=== PATIENT | female | born 1990 | race Caucasian/White ===

== ENCOUNTER → 2022-03-12 08:56 | Outpatient (CLI) | payer OTHER, SELFPAY ==
[2022-03-12 10:02] LABS: HCG Quantitative /Beta subunit 2309.9 mIU/mL
== END ==
PROVIDERS: Referring Provider Obstetrics & Gynecology; Visit Provider Obstetrics & Gynecology
DX: O20.9 Hemorrhage in early pregnancy, unspecified (principal)
CPT/HCPCS: 36415; 84702

== ENCOUNTER → 2022-03-14 07:25 | Outpatient (CLI) | payer OTHER, SELFPAY ==
[2022-03-14 09:06] LABS: HCG Quantitative /Beta subunit 2958.7 mIU/mL
== END ==
PROVIDERS: Referring Provider Obstetrics & Gynecology; Visit Provider Obstetrics & Gynecology
DX: O20.9 Hemorrhage in early pregnancy, unspecified (principal)
CPT/HCPCS: 36415; 84702

== ENCOUNTER → 2022-03-17 13:58 | Outpatient (CLI) | payer OTHER, SELFPAY ==
[2022-03-17 14:44] LABS: HCG Quantitative /Beta subunit 6140.6 mIU/mL
--- NOTE | 2022-03-17 15:31 | DI.US.S_ITS ---
PROCEDURE: US OB <= 14 WEEKS FETUS INDICATIONS: VIABILITY OUTSIDE/PRIOR DATING DATA: Last menstrual period (LMP): Unknown. LMP-based estimated date of delivery (MIRTHA): Unknown. First dating scan (date and location): 03/17/2022. Estimated date of delivery (MIRTHA) from first dating scan: 11/10/2022. TECHNIQUE: Real-time scanning was performed of the fetus and maternal pelvic organs, with image documentation. Endovaginal scanning was also performed to better visualize the fetus and maternal ovaries. COMPARISON: None. FINDINGS: Embryo: No definite intrauterine gestational sac. Trace complex fluid within the endometrial canal. 2 hypoechoic foci within the uterus measuring 1.6 cm and 0.8 cm. These likely represent small uterine fibroids. Maternal organs: Right ovary is abnormal. Right adnexal cyst/gestational sac with suspected pole. [place]-rump length measuring at 0.4 cm corresponding to 6 weeks 0 days gestational age. Left ovary is not seen. Heart rate: 117 bpm. Yolk sac is seen. IMPRESSION: 1. Right ectopic with cardiac motion. 2. No intrauterine gestational sac is identified. Suspect small uterine fibroids. Comment: Findings were discussed with Rina Crowley at the time of dictation. We strive to produce accurate, complete, and clear reports of imaging services. To assist us in improving patient care, this report was composed using standard report templates and voice recognition software. Therefore, it may contain abnormal punctuation, insertions and/or omissions. Occasional wrong-word or sound-alike substitutions may occur. Though we review the report and make efforts to correct it, we do recommend that the report be read carefully in proper context to recognize any text inaccuracies. Dictated by: Earnest Mar M.D. on 03/17/2022 at 16:56 Approved by: Earnest Mar M.D. on 03/17/2022 at 17:07
== END ==
PROVIDERS: Referring Provider Obstetrics & Gynecology; Visit Provider Obstetrics & Gynecology
DX: O00.201 Right ovarian pregnancy without intrauterine pregnancy (principal)
CPT/HCPCS: 36415; 76801; 76817; 84702; J9250

== ENCOUNTER → 2022-03-20 06:34 | Outpatient (CLI) | payer OTHER, SELFPAY ==
[2022-03-20 09:43] LABS: HCG Quantitative /Beta subunit 8284.7 mIU/mL
== END ==
PROVIDERS: PCP Obstetrics & Gynecology; Referring Provider Obstetrics & Gynecology; Visit Provider Obstetrics & Gynecology
DX: O00.90 Unspecified ectopic pregnancy without intrauterine pregnancy (principal); Z3A.00 Weeks of gestation of pregnancy not specified
CPT/HCPCS: 36415; 84702

== ENCOUNTER → 2022-03-24 04:37 | Outpatient (CLI) | payer OTHER, SELFPAY ==
[2022-03-24 05:53] LABS: HCG Quantitative /Beta subunit 8667.1 mIU/mL
== END ==
PROVIDERS: PCP Obstetrics & Gynecology; Referring Provider Obstetrics & Gynecology; Visit Provider Obstetrics & Gynecology
DX: O00.90 Unspecified ectopic pregnancy without intrauterine pregnancy (principal); Z3A.00 Weeks of gestation of pregnancy not specified
CPT/HCPCS: 84702

== ENCOUNTER 2022-03-25 13:49 | Day surgery (SDC) | payer OTHER, SELFPAY ==
[2022-03-25] VITALS (11 sets, daily range): BP systolic 106–126; BP diastolic 54–78; PULSE 62–84; RESP 14–18; TEMP 36.3–36.8; O2SAT 99–100; BMI 28.1
--- NOTE | 2022-03-25 | PATH_ITS ---
[facility] Accession Number: [id number] No. of containers..01 Tissue . 01 Material submitted: . fallopian tube - RIGHT FALLOPIAN TUBE WITH ECTOPIC . 01 Diagnosis: Right Fallopian Tube with Ectopic , Salpingectomy: Chorionic villi and hemorrhage within fallopian tube lumen, consistent with ectopic gestation. MRV 03/27/2022 1326 Local . 01 Electronically signed: . Yashira Flowers MD, Pathologist NPI- [id number] . 01 Gross description: . Received in formalin labeled with the patient's name and right fallopian tube with ectopic and consists of a single fimbriated fallopian tube measuring 7.3 cm in length that is grossly dilated with a diameter ranging from 0.4 to 2.0 cm. The serosa is violaceous and slightly green and is apparently intact. Sectioning reveals the area of dilation to contain red-brown spongy material, and a possible gestational sac is identified located centrally measuring approximately 1.4 cm in greatest dimension. No tissue is identified. The uninvolved lumen is pinpoint and unremarkable. Signals Collector/Analyst sections are submitted as follows: . A1: Bisected fimbriae and unremarkable lumen. A2-A3: Signals Collector/Analyst dilated lumen. ([id number]) /[facility] 03/26/2022 1809 Local . 01 Pathologist provided ICD-10: O00.91 . 01 CPT . 315889 Specimen Comment: A courtesy copy of this report has been sent to [phone] Performed at: 01 [facility] [address] [place] [address] [address] [facility] [place], [place], [place] [id number] MD Neymar Syed MD Phone: [phone]
[2022-03-25 14:22] LABS: COVID19 -Nasal RAPID Negative (Negative)
[2022-03-25] MEDS: LACTATED RINGERS 1,000 ML 100 ML IV ×3 (14:30→17:00)
--- NOTE | 2022-03-25 14:37 | PM.HP.1 ---
History of Present Illness History of Present Illness Date Patient Seen: 03/25/22 Time Patient Seen: 14:37 Chief complaint: PELVIC Narrative: Patient is a 31-year-old 1 para 0 or rub the right ectopic Patient is status post 2 doses of methotrexate with continued rising of beta HCG. Right lower quadrant pain. Patient History Family & Social History Tobacco & Substance use: Smoking Status Never smoker alcohol intake former Substance Use Type does not use Meds Home Medications and Allergies Home Medications Medication Instructions Recorded Confirmed Type oxycodone 5 mg tablet 5 mg PO Q8H PRN pain #10 tabs 03/12/22 03/25/22 Rx Allergies Allergy/AdvReac Type Severity Reaction Status Date / Time No Known Drug Allergies Allergy Verified 03/25/22 14:36 Exam Vital Signs (past 8 hours): - 03/25/22 14:15 Temperature 97.3 F L Pulse Rate 84 Respiratory Rate 16 Blood Pressure 123/78 Pulse Oximetry 100 Oxygen Delivery Method Room Air Oxygen Delivery Method Room Air Narrative Exam Narrative: HEENT: No thyromegaly, no anterior cervical or supraclavicular lymphadenopathy. Lungs:Clear to auscultation bilaterally, no wheezes. Cardiovascular: Regular rate and rhythm, no murmurs, rubs, or gallops. Abdomen: No scars. No hepatosplenomegaly. No masses palpable. External genitalia: Normal Vagina: Normal Cervix: Normal Bimanual exam: 7 Week size anteverted uterus. Mobile. Right adnexal tenderness Objective Labs Labs: Laboratory Results - last 24 hr 03/25/22 14:07 SARS-CoV-2 (PCR) Negative Assessment & Plan Assessment & Plan narrative: Assessment: 31-year-old 1 para 0 with a right ectopic , not responding to methotrexate Plan: Diagnostic laparoscopy with possible right salpingectomy, chromotubation, possible mini-laparotomy with removal of the ectopic, and suction D&C The risks, benefits, and alternatives to the procedure were explained to the patient. The risks including bleeding, infection, injury to the bowel, bladder, ureters, or uterine perforation. She understands all of these risks and agrees to proceed. A full par Q was held and consent form was signed. COVID-19 COVID-19 status: Negative Result date/Date tested (Pos, Neg/Pending): 03/25/22 Time Spent With Patient Time with patient: less than 30 minutes Critical Care time: I spent a total of [] minutes of critical care time on this patient's care today; this time is exclusive of procedural time.
--- NOTE | 2022-03-25 14:43 | PM.PREOP ---
Pre-operative Note COVID-19 COVID-19 status: Negative Result date/Date tested (Pos, Neg/Pending): 03/25/22 Criteria for continued procedure: Non-surgical alternatives not available or appropriate per current SOC Interval Note History & Physical reviewed/Exam performed by Physician: Yes Changes to H&P: No H&P completed within 30 days and has changed as indicated here:: 03/25/22
[2022-03-25] MEDS: MIDAZOLAM 2 MG/2 ML VIAL IV (14:50)
[2022-03-25] MEDS: METHYLENE BLUE 50 MG/10 ML VIAL INJ (15:45)
[2022-03-25] MEDS: BUPIVACAINE 0.5% W/ EPI (PF) 30 ML VIAL INJ (15:50)
[2022-03-25] MEDS: MEPERIDINE 50 MG/ML INJ 12.5 MG IV (16:32)
--- NOTE | 2022-03-25 16:32 | SUR.OPER ---
Lithotomy on padded OR bed, head on pillow, arms secured on padded arm boards at <90 degrees abduction. Legs secured in padded yellow fins stirrups.
[2022-03-25] MEDS: HYDROMORPHONE 2 MG INJ IV ×2 (16:40→16:58)
[2022-03-25] MEDS: OXYCODONE/ACETAMINOPHEN 5/325 TABLET 1 TAB PO (16:56)
--- NOTE | 2022-03-25 17:19 | P.OP_ITS ---
Operative Date/Time/Diagnoses Date of procedure: 03/25/22 Time of procedure: 16:15 Pre-op diagnosis: Right ectopic Rising beta HCGs despite methotrexate Post-op diagnosis: same Procedure & Clinicians Procedure: Procedures Operation Date: 03/25/22 16:15 Actual Procedure Side Surgeon p Diagnostic laparoscopy, laparoscopic right salpingectomy, lysis of adhesions, right chromotubation, suction D&C Rina Crowley MD Indications: Right ectopic Rising beta HCGs despite methotrexate Surgeon: Rina Crowley Anesthesia Type: General and Local Operative Notes Findings: 6 week size anteverted uterus Normal left tube and ovary Normal right ovary Right tube with a 4 cm x 2 cm ectopic , blood coming from the fimbriated end Adhesion between the right tube and the cecum Normal liver and gallbladder Normal appendix Left tubal patency Closure Type: primary Specimen(s): endometrial curettings and right tube (With ectopic) Estimated blood loss (mL): 5 Blood products transfused: none Procedure in detail: After informed consent was obtained, the patient was taken to the operating room where she was placed in the dorsal supine position. After adequate general endotracheal anesthesia was achieved, she was placed in the dorsal lithotomy position, and prepped and draped in the usual sterile fashion. A time-out was performed. A bivalve speculum was placed into the vagina and the anterior lip of the cervix was grasped with a single-tooth tenaculum. The cervical os was sequentially dilated until the Zumi uterine manipulator could pass easily into the endometrial cavity. The single-tooth tenaculum was removed from the anterior lip of the cervix. The bivalve speculum was removed from the vagina. Attention was then turned to the abdomen where 6 cc of 0.5% Marcaine with epinephrine were injected in the umbilical fold. A 5 mm incision was made. Veress needle was placed into the peritoneal cavity, and its placement confirmed by aspiration and drop test. The abdominal cavity was insufflated with 3.1 L of CO2. The Veress needle was removed, and a 5 mm trocar was placed without difficulty. Initial inspection of the pelvis and abdomen revealed the findings noted above. A second trocar was placed after 6 cc of 0.5% Marcaine with epinephrine were injected 4 cm lateral to the umbilicus. A 5 mm trocar was placed under direct visualization. A third trocar was placed after 6 cc of 0.5% Marcaine with epinephrine were injected above the pubic symphysis. A 10 mm trocar was placed. Chromotubation was performed by injecting dilute methylene blue through the Zumi uterine manipulator. There was immediate spill from the left tube. The right tube with the ectopic was grasped with an atraumatic grasper. The mesosalpinx on the right side was cauterized and cut with the power seal all the way down to the cornua of the uterus. The tube was amputated at the cornua with cautery and cut. The tube with the ectopic was placed into the anterior cul-de-sac. A small endobag was placed through the suprapubic trocar. The right tube with the ectopic was placed into the bag. The trocar was removed. The bag was removed through the incision. The fascia was reapproximated on the suprapubic incision with 0 Vicryl. The subcutaneous layer was closed using 2 simple interrupted sutures with 2-0 Vicryl. The pelvis was irrigated with warm normal saline. There was no bleeding noted. The instru ments were removed from the abdomen. The CO2 was allowed to escape. The 5 mm trocars were closed with 4-0 Monocryl in a subcuticular fashion. The suprapubic incision was closed with 4-0 Monocryl in a subcuticular fashion. Steri-Strips and Allevyn dressings were placed. The Zumi uterine manipulator was removed from the uterus. A bivalve speculum was placed in the vagina. A single-tooth tenaculum was placed on the anterior lip of the cervix. The cervix was dilated to the # 8 Hegar dilator. The 7 curved plastic curette passed easily into the endometrial cavity. Several passes with suction revealed tissue. The last pass revealed blood only. The instruments were removed from the uterus. The single- tooth tenaculum was removed from the anterior lip of the cervix. The bivalve speculum was removed from the vagina. Sponge, lap, and instrument counts were correct x2. The patient tolerated the procedure well, and was taken to PACU in stable condition. Complications: none Post-operative Condition: stable Disposition: PACU Plan for aftercare: Home after recovery
== END 2022-03-25 18:00 | disposition home or self-care (01) ==
PROVIDERS: PCP Obstetrics & Gynecology; Referring Provider Obstetrics & Gynecology; Visit Provider Obstetrics & Gynecology
PROC: (CPT 49320; principal; 2022-03-25 16:15)
DX: O00.101 Right tubal pregnancy without intrauterine pregnancy (principal); O99.891 Other specified diseases and conditions complicating pregnancy; N73.6 Female pelvic peritoneal adhesions (postinfective); Z20.822 Contact with and (suspected) exposure to COVID-19
CPT/HCPCS: 59151; 58340; 58350; 58120; 87635; C9803; J1100; J1170; J2175; J2250; J2405; J2704; J3010; Q9968